=== PATIENT | male | born 1955 | race Caucasian/White ===

== ENCOUNTER → 2020-12-27 | Outpatient (CLI) | payer OTHER, MEDICARE ==
--- NOTE | 2020-12-27 13:35 | CARD ---
MR#: [id number] Date of Study: 12/27/2020 Ordering Physician: ROBLES FRIAS, Referring Physician: ROBLES FRIAS, Tech: Ramon Saavedra [facility] APPROVED REPORT EXAM: Two-dimensional and M-mode echocardiogram with Doppler and color Doppler. Other Information Quality : AverageFairHR: 45bpm Rhythm : Bradycardia INDICATION CVA/TIA RISK FACTORS Diabetes 2D DIMENSIONS Left Atrium(2D)4.1 (1.6-4.0cm)IVSd1.3 (0.7-1.1cm) Aortic Root(2D)3.8 (2.0-3.7cm)LVDd5.4 (3.9-5.9cm) LVOT Diameter2.2 (1.8-2.4cm)PWd1.3 (0.7-1.1cm) LVDs3.8 (2.5-4.0cm)FS (%) 28.7 % SV76.2 ml Aortic Valve AoV Peak Jv.127.1cm/sAoV VTI31.1cm AO Peak GR.6.5mmHgLVOT Peak Jv.108.7cm/s AO Mean GR.3mmHgAVA (VMAX)3.25cm2 AI P 1/2 [id number] Mitral Valve MV E Evqqsray63.0cm/sMV E Peak Gr.3mmHg MV DECEL [id number] A Vxysbrgs67.6cm/s MV E Mean Gr.1mmHgE/A Ratio1.2 Pulmonary Valve PV Peak Cnaxbwsd38.8cm/s Tricuspid Valve TR P. Nrqitcic966bu/sTR Peak Gr.21mmHg Pulmonary Vein S1 Fmygkhzj09.8cm/sD2 Wjkugnyk98.6cm/s LEFT VENTRICLE The Left Ventricle is borderline dilated. There is mild concentric left ventricular hypertrophy. The left ventricular systolic function is normal and the ejection fraction is within normal range. Left v entricular ejection fraction is 50-55 %. There is normal LV segmental wall motion. No left ventricle thrombus noted on this study. There is no ventricular septal defect visualized. There is no left vent ricular aneurysm. There is no mass noted in the left ventricle. RIGHT VENTRICLE The right ventricle is normal size. There is normal right ventricular wall thickness. The right ventr icular systolic function is normal. ATRIA The left atrium is mildly dilated. The right atrium size is normal. The interatrial septum is intact with no evidence for an atrial septal defect or patent foramen ovale as noted on 2-D or Doppler imagi ng. AORTIC VALVE The aortic valve is trileaflet. The aortic valve is mildly sclerotic. Doppler and Color Flow revealed mild aortic regurgitation. There is no significant aortic valvular stenosis. There is no aortic valv ular vegetation. MITRAL VALVE The mitral valve is normal in structure and function. There is no evidence of mitral valve prolapse. There is no mitral valve stenosis. Doppler and Color-flow revealed trace to mild mitral regurgitation . TRICUSPID VALVE The tricuspid valve is normal in structure and function. Doppler and Color Flow revealed trace tricus pid regurgitation. The PA pressure was estimated at 26 mmHg. There is no tricuspid valve prolapse or vegetation. There is no tricuspid valve stenosis. PULMONIC VALVE The pulmonary valve is normal in structure and function. Trivial pulmonic regurgitation There is no p ulmonic valvular stenosis. GREAT VESSELS The aortic root is mildly dilated (3.8cm) The ascending aorta is normal in size. The pulmonary artery is normal. The IVC is normal in size and collapses >50% with inspiration. PERICARDIAL EFFUSION There is no pleural effusion. There is no evidence of significant pericardial effusion. Critical Notification Critical Value: No <Conclusion> The Left Ventricle is borderline dilated. The left ventricular systolic function is normal and the ejection fraction is within normal range. Left ventricular ejection fraction is 50-55 %. There is mild concentric left ventricular hypertrophy. Doppler and Color Flow revealed mild aortic regurgitation. There is no significant aortic valvular stenosis. Doppler and Color-flow revealed trace to mild mitral regurgitation. Doppler and Color Flow revealed trace tricuspid regurgitation. The PA pressure was estimated at 26 mmHg. Signed by : Rip Rodriguez MD Electronically Approved : 12/27/2020 13:34:45
== END ==
LOC: ECHO 10:34
PROVIDERS: ATTEND Internal Medicine Cardiovascular Disease
DX: I08.8 Other rheumatic multiple valve diseases (principal); I48.91 Unspecified atrial fibrillation
CPT/HCPCS: 93306

== ENCOUNTER 2021-08-26 07:40 | Outpatient (CLI) | payer MEDICARE, OTHER ==
[~2021-08-26] VITALS: Ht 182.9 cm; Wt 98.0 kg
[2021-08-26] MEDS ORDERED: LIDOCAINE 2%/EPI 1:100,000 20 ML VIAL. ONE (08:19)
[2021-08-26 08:46] VITALS: BP 145/70
[2021-08-26] MEDS ORDERED: ASPI-630 PO (09:09)
[2021-08-26] MEDS ORDERED: METO-239 PO (09:10)
[2021-08-26] MEDS ORDERED: OXYC5CAP PO (09:10)
[2021-08-26] MEDS ORDERED: PANT40TA77 PO (09:10)
[2021-08-26] MEDS ORDERED: AMLO-186 PO (09:11)
--- NOTE | 2021-08-26 09:15 | NUR ---
Discharge Note: THOMAS OVALLE Discharge instructions and discharge home medications reviewed with Patient and a copy given. All questions have been answered and understanding verbalized. The following instructions and handouts were given: incision site care, Medtronic device and instructions Dressing to L midline chest dry and intact. Patient discharged to Home or Self Care with Spouse via Ambulated MONI GLEZ
[2021-08-26] MEDS ORDERED: LIDOCAINE 2%/EPI 1:100,000 20 ML VIAL. INJ ONE (09:30)
--- NOTE | 2021-08-26 16:35 | CARD ---
MR#: [id number] Date of Study: 08/26/2021 Ordering Physician: ROBLES FRIAS, Referring Physician: ROBLES FRIAS, Tech: APPROVED REPORT EXAM Loop Recorder Indication: Atrial fibrillation Procedure details: After appropriate informed consent the left chest was prepped and draped in usual sterile fashion. U nder 1% lidocaine local anesthesia a 0.5 inch incision was made in the parasternal space at the fourt h and fifth intercostal margins and a Medtronic loop recorder with serial number [id number] was impl anted under the subcutaneous fascia and the incision was then closed with Steri-Strips and sterile dr essing was applied. No acute complications. Sensitivity 0.035 mV. CONCLUSION 1. Successful insertion of a Medtronic loop recorder for evaluation of atrial fibrillation. Signed by : Robles Frias, Electronically Approved : 08/26/2021 16:35:07
== END 2021-08-26 09:30 | disposition home or self-care (01) ==
LOC: CCL 07:40
PROVIDERS: ATTEND Internal Medicine Cardiovascular Disease
DX: I48.91 Unspecified atrial fibrillation (principal); N40.0 Benign prostatic hyperplasia without lower urinary tract symptoms; Z87.891 Personal history of nicotine dependence; Z79.82 Long term (current) use of aspirin; Z79.899 Other long term (current) drug therapy; Z98.890 Other specified postprocedural states
CPT/HCPCS: 33285; C1764; J3490